=== PATIENT | male | born 1950 | race Caucasian/White ===

== ENCOUNTER 2017-06-11 06:56 | Day surgery (SDC) | payer MEDICARE ==
--- NOTE | 2017-06-11 08:54 | CP.SDSHP ---
Same Day Surgery H & P - History Proposed Procedure: Screening colonoscopy Pre-Op Diagnosis: Screening for colorectal cancer - Previous Medical/Surgical History Cardiac: Hypertension Endocrine/Metabolic: Diabetes Previous Surgical History: Knee surgery - Allergies Allergies: Allergies No Known Allergies Allergy (Verified 06/11/17 07:20) - Current Medications Current Medications: See reconciliation sheet - Physical Exam General Appearance: WD WN male in NAD Vital Signs: Vital Signs 06/11/17 07:10 Temperature 97.4 F L Pulse Rate 59 L Respiratory 20 Rate Blood Pressure 125/82 O2 Sat by Pulse 100 Oximetry Mental Status: Alert & Oriented x3 Neuro: WNL Heart: WNL Lungs: WNL GI: WNL - {Optional Preform as Required} Abdomen: WNL - Impression Impression: Screening for colorectal cancer Pt. Evaluated Today:Candidate for Anesthesia & Procedure: Yes - Date & Time Date: 06/11/17 Time: 08:54 Short Stay Discharge - Short Stay Discharge Admitting Diagnosis/Reason for Visit: ENCOUNTER FOR SCREENING FOR MALIGNANT NEOPLASM OF Disposition: HOME/ ROUTINE
[2017-06-11] MEDS ORDERED: Lactated Ringer's 500 ML IV ONE (09:03)
[2017-06-11] MEDS ORDERED: Propofol 10 mg/ml Inj (20 ML) ONE ×2 (09:17→09:33)
[2017-06-11 10:35] VITALS: TEMP 97
[2017-06-11 10:36] VITALS: O2SAT 99
[2017-06-11 10:41] VITALS: RESP 15
[2017-06-11 11:01] VITALS: BP 150/82
[2017-06-11 11:33] VITALS: PULSE 54
== END 2017-06-11 11:00 | disposition home or self-care (01) ==
LOC: C.ENDO 06:56
PROVIDERS: ATTEND Internal Medicine Gastroenterology
DX: Z12.11 Encounter for screening for malignant neoplasm of colon (principal); K64.0 First degree hemorrhoids; K57.30 Diverticulosis of large intestine without perforation or abscess without bleeding; E11.9 Type 2 diabetes mellitus without complications; I10 Essential (primary) hypertension; Z90.49 Acquired absence of other specified parts of digestive tract; Z96.659 Presence of unspecified artificial knee joint; Z79.84 Long term (current) use of oral hypoglycemic drugs; Z79.899 Other long term (current) drug therapy
CPT/HCPCS: 82948; G0121; J2001; J2704; J7120

== ENCOUNTER 2017-07-13 06:23 | Day surgery (SDC) | payer MEDICARE ==
[2017-07-09 12:23] VITALS: BMI 30.2
[2017-07-13] MEDS ORDERED: Lidocaine 2% Jelly (Uro-Jet) ONE (07:39)
[2017-07-13] MEDS ORDERED: cefTRIAXone IV 1 gm in Dextros 50 ML IVPB ONE (07:39)
[2017-07-13] MEDS ORDERED: Midazolam 2 MG/2 ML VIAL ONE (07:47)
[2017-07-13] MEDS ORDERED: Propofol 10 mg/ml Inj (20 ML) ONE (07:47)
[2017-07-13] MEDS ORDERED: HYDROmorphone 0.5 mg/0.5 ml ISec IVP PRN (08:33)
--- NOTE | 2017-07-13 08:56 | PCM.SURG1 ---
Surgeon's Initial Post Op Note - Surgeon's Notes Surgeon: Supa Vásquez Mobile Lounge Driver Or Operator: none Type of Anesthesia: IV Sedation Pre-Operative Diagnosis: Hematuria Operative Findings: urethral stricture. BPH. Cystitis. Dilated distal ureters , R>L. Abdominal calcifications Post-Operative Diagnosis: same Operation Performed: cysto, optical internal urethrotomy. bilat rtg pyelogram. bladder bx and fulg. EUA Specimen/Specimens Removed: urine, bladder bx Estimated Blood Loss: EBL {In ML}: 0 Blood Products Given: N/A Drains Used: No Drains Post-Op Condition: Good Date of Surgery/Procedure: 07/13/17 Time of Surgery/Procedure: 08:45
[2017-07-13] MEDS ORDERED: Lactated Ringer's 1,000 ML IV ONE (10:00)
[2017-07-13 11:03] VITALS: PULSE 55; TEMP 97.6; O2SAT 98
[2017-07-13 11:22] VITALS: BP 129/80; RESP 16
--- NOTE | 2017-07-13 11:38 | CT ---
PROCEDURE: CT Abdomen and Pelvis without intravenous contrast HISTORY: hematuria COMPARISON: None. TECHNIQUE: Without contrast.. Contrast dose: 0 Radiation dose: Total exam DLP = 860.93 mGy-cm. This CT exam was performed using one or more of the following dose reduction techniques: Automated exposure control, adjustment of the mA and/or kV according to patient size, and/or use of iterative reconstruction technique. FINDINGS: LOWER THORAX: Linear scar/atelectasis both lower lobes. LIVER: Unremarkable. No gross lesion or ductal dilatation. GALLBLADDER AND BILE DUCTS: Unremarkable. PANCREAS: Unremarkable. No gross lesion or ductal dilatation. SPLEEN: Unremarkable. ADRENALS: Unremarkable. No mass. KIDNEYS AND URETERS: Multiple left renal cortical cysts, largest 1.9 cm in the lower pole. No renal calculus or hydronephrosis. VASCULATURE: Unremarkable. No aortic aneurysm. BOWEL: Unremarkable. No obstruction. No gross mural thickening. APPENDIX: Unremarkable. Normal appendix. PERITONEUM: No ascites. There is a calcified soft tissue mesenteric mass best seen on series 3, images 101 through 118. There is evidence of desmoplastic reaction and surrounding mesenteric. Most likely, this represents a calcified carcinoid tumor. Calcified mesenteric lymphadenopathy should also be considered. LYMPH NODES: Shotty inguinal lymph nodes are noted bilaterally. No significant mesenteric or pelvic lymphadenopathy is appreciated. BLADDER: Small amount of gas within the bladder likely due to recent instrumentation. There is a small amount of dependent high attenuation material within the urinary bladder of uncertain significance. This is likely retained contrast due to recent retrograde pyeloureterography performed on this same date. REPRODUCTIVE: Normal prostate BONES: No acute fracture. OTHER FINDINGS: None. IMPRESSION: Calcified mesenteric mass with mild surrounding desmoplastic reaction. 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 Rule out calcified mesenteric lymphadenopathy. Additional minor findings as above.
--- NOTE | 2017-07-13 15:09 | RAD ---
HISTORY: HEMATURIA COMPARISON: No prior. FINDINGS: BOWEL: Normal bowel gas pattern. Film labeled post shows some residual contrast material in the urinary collecting system status post retrograde pyeloureterography. Globular calcifications centrally within the abdomen. Correlating with CT examination of the same date, possibly calcified carcinoid versus calcified lymph nodes. BONES: Normal. OTHER FINDINGS: None. IMPRESSION: Globular central abdominal calcification. Normal bowel gas pattern.
--- NOTE | 2017-07-13 15:12 | RAD ---
PROCEDURE: Intraoperative fluoroscopy HISTORY: HEMATURIA COMPARISON: None available TECHNIQUE: Intraoperative fluoroscopy was provided for retrograde pyeloureterography. . Total time of fluoroscopy was 27.7 seconds. FINDINGS: Multiple fluoroscopic spot films are submitted. IMPRESSION: Fluoroscopy provided.
--- NOTE | 2017-07-17 07:26 | OP ---
PROCEDURE DATE: 07/13/2017 PREOPERATIVE DIAGNOSIS: Hematuria. POSTOPERATIVE DIAGNOSES: Hematuria. Benign prostatic hypertrophy. Cystitis. PROCEDURE: Cystoscopy. Bladder biopsy and fulguration. Bilateral retrograde ureteral pyelogram. Exam under anesthesia. Optical internal urethrotomy. OPERATING SURGEON: Flory Vásquez MD Procedure was performed under video endoscopic control as well as under fluoroscopic control. DESCRIPTION OF PROCEDURE: Procedure as follows: The patient received preoperative antibiotics. The patient was placed in lithotomy position. Genitalia prepped and sterilely. Anesthesia was provided by the anesthesiologist. A 22-[place] cystoscope sheath was introduced under direct vision. Urethra, prostate, and bladder were inspected with 30-degree and subsequently 70-degree lenses. FINDINGS: There was noted to be a stricture involving the bulbous urethra. The optical internal urethrotomy was performed. The stricture was incised in 12 o'clock position and allowed the urethrotome to be advanced to the bladder. Thereafter, 22-[place] cystoscope sheath was reintroduced to urethra without difficulty into the bladder. The prostatic urethra was occlusive secondary to lateral lobe prostatic hypertrophy. There was mild contact bleeding from the prostate surface, especially at the lateral lobes posteriorly. The prostatic urethra was occlusive. There was no intravesical middle lobe. There were no bladder stones. There was no bladder tumor. There was moderate bladder trabeculation. The ureteral orifices were in normal position and shape. Bladder contour was normal. There was no bladder diverticulum. There was some area of more focal inflammation of the bladder. The ureteral orifices were in normal position and shape. Occlusive tip retrograde ureteral pyelogram was performed. Iodinated contrast dye was instilled via cone tip catheter into each ureteral orifice. The ureters and kidneys were viewed sequentially with fluoroscopy. Findings, on retrograde pyelogram, there was no evidence of obstruction or filling defect within the ureters or collecting systems. There was good drainage noted on the post drainage film. The bladder was reinspected with 70-degree lens and confirmed the above findings. The area of the abnormal mucosa within the bladder was biopsied using cold cup biopsy forceps. The biopsy site was fulgurated with Ball electrode and electrocautery. Hemostasis was complete. The fulguration of the bleeding site at the bladder neck and the prostatic urethra was performed as well. The bladder was then drained. Cystoscope sheath removed. Rectal examination was performed. There was no abnormal pelvic mass fixation or induration. Prostate was supple and smooth, approximately 25 to 30 gm in size without fixation, induration, or nodularity. The patient tolerated procedure without complication. Flory Vásquez MD
== END 2017-07-13 11:25 | disposition home or self-care (01) ==
LOC: C.SDS 06:23
PROVIDERS: ATTEND Urology
DX: R31.9 Hematuria, unspecified (principal); N40.0 Benign prostatic hyperplasia without lower urinary tract symptoms; N30.91 Cystitis, unspecified with hematuria
CPT/HCPCS: 52276; 74019; 74176; 82948; 87086; 88104; 88305; J0696; J7120

== ENCOUNTER 2018-04-26 08:10 | Outpatient (CLI) | payer MEDICARE | END 2018-04-26 08:11 | disposition home or self-care (01) | LOC: C.CTH 08:10 | DX: R19.07 Generalized intra-abdominal and pelvic swelling, mass and lump (principal) ==